=== PATIENT | female | born 2000 | race Asian ===

== ENCOUNTER 2025-02-22 07:36 | Emergency (ER) | payer SELFPAY ==
[2025-02-22 07:39] VITALS: BMI 25.4
[2025-02-22 08:17] VITALS: BP 119/84; PULSE 97; RESP 16; TEMP 36.8; O2SAT 100; BMI 25.4
--- NOTE | 2025-02-22 08:29 | XR_ITS ---
Examination: Knee, right , 3 views Technique: Knee AP, lateral, oblique 3 views Date and time of exam: February 22, 2025 0835 hours INDICATIONS: Patient fell 2 days ago with injury to the knee, knee pain FINDINGS: No fracture or dislocation Moderate knee effusion IMPRESSION: No fracture dislocation
--- NOTE | 2025-02-22 08:36 | PD.EDLOWEX ---
Lower Extremity Injury RME/HPI General Chief Complaint: Extremity Injury, Lower Stated Complaint: RIGHT KNEE PAIN S/P FALL LAST NIGHT Time Seen by Provider: 02/22/25 07:48 Arrival date/time: 02/22/25 07:36 This is a 24-year-old female that is brought in by family with complaints of right knee pain. Patient states she fell down the stairs yesterday at a graduation [employer] party. Patient states she was intoxicated and pain was not that bad last night. Patient states pain is worse this morning. Patient denies any other trauma. Patient denies any past medical history Related Data Previous Rx's ?Medication ?Instructions ?Recorded ibuprofen 800 mg tablet 800 mg PO Q6H PRN pain #20 tabs 02/22/25 Allergies Allergy/AdvReac Type Severity Reaction Status Date / Time NKA Allergy Uncoded 02/22/25 07:42 Review of Systems Review of Systems Systems Reviewed: All systems reviewed, normal except as documented Past Medical History Past Medical History Comments PMH COMMENT: Denies ED Exam Narrative Physical exam: VITAL SIGNS: Reviewed. GENERAL APPEARANCE: Alert and interactive, follows commands, no acute distress HEAD AND FACE: Non-traumatic. ENT: PERRL, pink conjunctivitis, eyelid no trauma, Mucous membrane moist. NECK: Supple, nontender, no nuchal rigidity. CHEST: No tenderness, no crepitus, no paradoxical movement, no retractions. LUNGS: breathing even and unlabored HEART: Regular rate, cap refill less than 2 seconds ABDOMEN: Soft, nondistended, no guarding, nontender, no rebound, no masses, NEUROLOGICAL: Gross motor function intact sensory function intact, Appropriate for age. MUSCULOSKELETAL: low back nontender, full range of motion. EXTREMITIES: No redness no swelling no skin breakdown on bilateral foot and leg. Distal neurovascular status intact bilateral foot,. Pain with range of motion of the right knee. Pain to palpation to right knee SKIN: Color pink, dry, no rash, no lacerations, no abrasions, no contusions. Course Orders Category Date Time Status Apply knee immobilizer NOW Care 02/22/25 10:26 Active Crutches .NOW Care 02/22/25 10:26 Active XR knee RT 3V Stat Exams 02/22/25 08:29 Completed Vital Signs Vital signs: Vital Signs Temperature 98.2 F 02/22/25 08:17 Pulse Rate 97 02/22/25 08:17 Respiratory Rate 16 02/22/25 08:17 Blood Pressure 119/84 02/22/25 08:17 Pulse Oximetry (%) 100 02/22/25 08:17 Oxygen Delivery Method Room Air 02/22/25 08:17 Extremity Injury, Lower MDM Narrative MDM Narrative:: knee x ray: FINDINGS: No fracture or dislocation Moderate knee effusion IMPRESSION: No fracture dislocation I spoke to patient at length. Today patient had xray of knee. There was no acute fracture seen. Exam appeared unremarkable. I explained to patient at length that if there was continued pain to this area or worsened to come back to ED or see primary provider for more xrays or further testing such as CT scan or MRI. X rays are not perfect and sometimes serial films needed. Patient verbalized understanding. Patient states they will follow up with primary provider in 1-2 days or come back to ED if symptoms change or worsen. Explained to patient that even though there is no fracture or dislocation that does not mean there is no injuries to other tendons or ligaments. Patient may need an MRI in the future for continued pain. Will send patient home with a knee immobilizer and crutches. Patient did not want pain medication here. Discharge Plan Plan Patient Disposition: HOME (Self Care) Patient condition on transfer: Stable Prescriptions/Referrals Prescriptions/Med Rec: New ibuprofen 800 mg tablet 800 mg PO Q6H PRN (Reason: pain) Qty: 20 0RF Referrals: No Primary/Family,Physician [Primary Care Provider] - In 1 week Problem List Clinical Impression: Injury of knee, right, Acute knee pain Patient/Caregiver Discharge Instructions Discharge Activity: activity as tolerated Education Materials: Knee Pain, ED RICE Additional Instructions: Follow up with primary provider in 1-2 days. Come back to ED if symptoms change or worsen may need. Further radiology studies if continued pain such as an MRI. Print Language: Georgian Stand Alone Forms: Delia Award Info., Work/School Release, Patient Portal Info Letter PA/SIMI Supervising Physician YAYA/SIMI Supervising Physician: juju
== END 2025-02-22 10:46 | disposition home or self-care (01) ==
PROVIDERS: Emergency Provider Emergency Medicine
DX: S89.91XA Unspecified injury of right lower leg, initial encounter (principal); W10.9XXA Fall (on) (from) unspecified stairs and steps, initial encounter
CPT/HCPCS: 73562; 99283

== ENCOUNTER 2025-09-20 19:27 | Emergency (ER) | payer BC, SELFPAY ==
[2025-09-20 20:13] VITALS: BP 118/83; PULSE 124; RESP 18; TEMP 37.4; O2SAT 97; BMI 24.8
--- NOTE | 2025-09-20 20:31 | EDNOTE_ITS ---
Upper Respiratory Inf. RME/HPI General Chief Complaint: Flu Like Symptoms Stated Complaint: FEVER,BODYACHES,N/V/D Time Seen by Provider: 09/20/25 19:49 Arrival date/time: 09/20/25 19:27 25-year-old female patient with no past medical history, came in with family for evaluation regarding flulike symptoms. This been ongoing since yesterday as sore throat, vomiting, diarrhea, body aches, joint pains, fever, dizziness, headache, severity moderate. Patient tested herself positive for influenza yesterday. Patient denies any other complaints. Been taking DayQuil and NyQuil, and ibuprofen with no relief. Denies any ill contacts. Related Data Previous Rx's ?Medication ?Instructions ?Recorded ibuprofen 800 mg tablet 800 mg PO Q6H PRN pain #20 t abs 02/22/25 diphenhydramine HCl 50 mg tablet 50 mg PO TID PRN tasha rgic reaction 09/20/25 (Benadryl Allergy) #20 tabs famotidine 40 mg tablet (Pepcid) 40 mg PO BID #14 tabs 09/20/25 ibuprofen 800 mg tablet 800 mg PO Q8H PRN pain #30 t abs 09/20/25 ondansetron HCl 4 mg tablet 4 mg PO Q8H PRN nausea and 09/20/25 vomiting 5 days #20 tabs oseltamivir 75 mg capsule (Tamiflu) 75 mg PO BID 5 day s #10 caps 09/20/25 Allergies Allergy/AdvReac Type Severity Reaction Status Date / Time No Known Allergies Allergy Verified 09/20/25 19:28 Review of Systems Review of Systems Narrative Review of Systems: Review of system reviewed and within normal limits except mentioned in HPI ED Exam Narrative Physical exam: VITAL SIGNS: Reviewed. GENERAL APPEARANCE: Alert and interactive, follows commands, no acute distress, HEAD AND FACE: Non-traumatic. ENT: PERRL, pink conjunctivitis, eyelid no trauma, Mucous membrane moist. NECK: Supple, nontender, no nuchal rigidity. CHEST: No tenderness, no crepitus, no paradoxical movement, no retractions. LUNGS: Clear, well ventilated, symmetric, no rales, no wheezing, no ronchi, no stridor, good breath sounds bilaterally. HEART: Regular rate, regular rhythm, no murmur, no gallops. ABDOMEN: Soft, positive bowel sounds, nondistended, no guarding, nontender, no rebound, no masses, RECTAL: Deferred. GENITAL: Deferred. NEUROLOGICAL: Gross motor function intact sensory function intact, Appropriate for age. MUSCULOSKELETAL: low back nontender, full range of motion. EXTREMITIES: Nontender, full range of motion. SKIN: Color pink, dry, no rash, no lacerations, no abrasions, no contusions. LYMPHATICS: Deferred. Course Quality Measures none Orders Category Date Time Status Bedside Influenza A&B Antigen Test NOW Care 09/20/25 19:49 Completed Acetaminophen Tab [Tylenol ES Tab] Med 09/20/25 20:30 Once 1,000 mg PO X1 ONE DiphenhydrAMINE [Benadryl] Med 09/20/25 20:30 Once 50 mg PO X1 ONE Famotidine [Pepcid] Med 09/20/25 20:30 Once 40 mg PO X1 ONE Ondansetron Odt [Zofran Odt] Med 09/20/25 20:30 Once 4 mg PO X1 ONE Oseltamivir [Tamiflu] Med 09/20/25 20:30 Once 75 mg PO X1 ONE Vital Signs Vital signs: Vital Signs Temperature 99.3 F 09/20/25 20:13 Pulse Rate 124 H 09/20/25 20:13 Respiratory Rate 18 09/20/25 20:13 Blood Pressure 118/83 09/20/25 20:13 Pulse Oximetry (%) 97 09/20/25 20:13 Oxygen Delivery Method Room Air 09/20/25 20:13 Upper Respiratory Infection MDM Narrative MDM Narrative:: 25-year-old female patient with no past medical history, came in with family for evaluation regarding flulike symptoms. This been ongoing since yesterday as sore throat, vomiting, diarrhea, body aches, joint pains, fever, dizziness, headache, severity moderate. Patient tested herself positive for influenza yesterday. Patient denies any other complaints. Been taking DayQuil and NyQuil, and ibuprofen with no relief. Denies any ill contacts. Imaging or workup started this time. Patient was given Tamiflu, Zofran, Pepcid, Tylenol, and Benadryl. I will send her home on Tamiflu. She is stable for discharge home Patient data External records reviewed:: None Clinical information provided by:: patient and family Social determinants that could affect healthcare access:: none Patient has the following chronic illnesses:: None How is presenting disease/condition affected by chronic disease/condition?: no chronic disease Evaluation data The following diagnostics were reviewed and interpreted by me:: other (specify) Lab and/or radiology exams considered but not ordered:: None Interpretation Summary: None Medications / Prescriptions Medications or Prescriptions considered but not ordered:: None Medication administrations:: See above Consultations Consultation(s) initiated? (list below): No Diagnosis Upper Respiratory Differential Diagnosis: upper respiratory infection, viral infection and influenza Most likely diagnosis given after review of the tests above:: Influenza Admission Indicated Admission indicated?: not indicated Admission Request Was there a request for admission?: No Disposition Plan Disposition Plan: Discharge Discharge Attestation Discharge Attestation: The patient and all family members were given an opportunity to ask questions and understood the discharge instructions. Discharge instructions specifically effects, indications for sooner follow up or return to the emergency department, and the expected course of current diagnosis. Patient condition: Stable Discharge Plan Plan Patient Disposition: HOME (Self Care) Discharge Disposition comment: Stable Prescriptions/Referrals Prescriptions/Med Rec: New oseltamivir [Tamiflu] 75 mg capsule 75 mg PO BID 5 Days Qty: 10 0RF Benadryl Allergy 50 mg tablet 50 mg PO TID PRN (Reason: allergic reaction) Qty: 20 0RF ibuprofen 800 mg tablet 800 mg PO Q8H PRN (Reason: pain) Qty: 30 0RF ondansetron HCl 4 mg tablet 4 mg PO Q8H PRN (Reason: nausea and vomiting) 5 Days Qty: 20 0RF famotidine [Pepcid] 40 mg tablet 40 mg PO BID Qty: 14 0RF No Action ibuprofen 800 mg tablet 800 mg PO Q6H PRN (Reason: pain) Qty: 20 0RF Problem List Clinical Impression: Influenza Patient/Caregiver Discharge Instructions Discharge Activity: activity as tolerated Education Materials: ED Influenza (Adult) Additional Instructions: Thank you for the opportunity for serving you today. You are stable for discharged . You are advised to: Follow-up with your PCP in 1 to 2 days Return to ED for worsening of symptoms Increase oral fluids Take medication as prescribed Print Language: Hebrew Stand Alone Forms: Delia Award Info., Patient Portal Info Letter YAYA/SIMI Supervising Physician YAYA/SIMI Supervising Physician: MD Warner
[2025-09-20] MEDS: FAMOTIDINE 20 MG TABLET 40 MG PO (20:41)
[2025-09-20] MEDS: ONDANSETRON ODT 4 MG TABRAP PO (20:42)
[2025-09-20] MEDS: ACETAMINOPHEN 500 MG TABLET 1000 MG PO (20:42)
[2025-09-20] MEDS: OSELTAMIVIR 75 MG CAPSULE PO (20:43)
== END 2025-09-20 21:41 | disposition home or self-care (01) ==
LOC: SERX 21:03
PROVIDERS: Emergency Provider Emergency Medicine
DX: J11.1 Influenza due to unidentified influenza virus with other respiratory manifestations (principal)
CPT/HCPCS: 87502; 99282; Q0162; A9270